=== PATIENT | male | born 1990 | race Caucasian/White ===

== ENCOUNTER → 2016-12-04 | Outpatient (CLI) | payer OTHER ==
[2016-12-04 09:29] LABS: BASO % 0.1 %; BASO ABS # 0.02 K/uL (0-0.2); COMPLETE YES; EOS % 0.1 %; HEMATOCRIT 50.5 % (42-52); IG% 0.6 %; LYMPH % 16.7 %; LYMPH ABS # 2.72 K/uL (1.2-3.4); MEAN CELL VOLUME 99.6 fL (80-100); MEAN CORPUSCULAR HEMOGLOBIN 35.9 pg (25-34); MEAN PLATELET VOLUME 9.6 fL (7.4-10.4); NEUT % 77.5 %; PLATELET COUNT 220 K/uL (130-400); RED BLOOD COUNT 5.07 M/uL (4.7-6.1); WHITE BLOOD COUNT 16.27 K/uL (4.8-10.8)
[2016-12-04 09:31] LABS: URINE APPEARANCE CLEAR (CLEAR); URINE BILIRUBIN NEG (NEG); URINE COLOR YELLOW; URINE EPITHELIAL CELL AUTO 0-5 /lpf (0-5); URINE NITRITE NEG (NEG); URINE PH 5.5 (4.5-7.5); URINE SPECIFIC GRAVITY 1.021 (1.000-1.030); UROBILINOGEN NEG (NEG)
[2016-12-04 09:32] LABS: MANUAL MICROSCOPIC REQUIRED? NO; REVIEW REQ? NO
[2016-12-04 09:46] LABS: URINE PROTIEN/CREAT RATIO 0.1 (0-0.2); URINE TOTAL PROTEIN 20.4 mg/dl (0-11.9)
[2016-12-04 10:01] LABS: BUN/CREATININE RATIO 11.8 (10-20); CREATININE 1.1 mg/dl (0.60-1.40); POTASSIUM 3.3 mmol/L (3.5-5.1)
[2016-12-04 10:04] LABS: ALB/GLOB RATIO 1.1 (0.9-2)
[2016-12-04 11:13] LABS: URINE TOTAL PROTEIN 10.6 mg/dl (0-11.9)
[2016-12-04 12:22] LABS: URINE TOTAL PROTEIN CALC 297.9 mg/24 hr (0-149.1)
[2016-12-04 12:23] LABS: CREATININE 1.1 mg/dl (0.6-1.4)
== END | disposition home or self-care (01) ==
LOC: C.LAB1850 08:41
PROVIDERS: ATTEND Internal Medicine Nephrology
DX: M31.0 Hypersensitivity angiitis (principal); D69.0 Allergic purpura; R31.9 Hematuria, unspecified; Z79.52 Long term (current) use of systemic steroids

== ENCOUNTER → 2017-01-10 | Outpatient (CLI) | payer OTHER ==
[2017-01-10 12:20] LABS: BASO % 0.2 %; BASO ABS # 0.02 K/uL (0-0.2); COMPLETE YES; EOS % 0.3 %; HEMATOCRIT 47.5 % (42-52); IG% 0.6 %; LYMPH % 16.7 %; LYMPH ABS # 1.99 K/uL (1.2-3.4); MEAN CELL VOLUME 98.3 fL (80-100); MEAN CORPUSCULAR HEMOGLOBIN 36.2 pg (25-34); MEAN CORPUSCULAR HGB CONC 36.8 g/dl (32-36); MEAN PLATELET VOLUME 9.8 fL (7.4-10.4); MONO % 8.2 %; PLATELET COUNT 181 K/uL (130-400); RED BLOOD COUNT 4.83 M/uL (4.7-6.1); WHITE BLOOD COUNT 11.92 K/uL (4.8-10.8)
[2017-01-10 12:58] LABS: ALT/SGPT 97 U/L (12-78); CREATININE 0.98 mg/dl (0.60-1.40)
[2017-01-10 13:01] LABS: ALKALINE PHOSPHATASE 70 U/L (45-117); AST/SGOT 21 U/L (15-37)
== END | disposition home or self-care (01) ==
LOC: C.LAB1850 11:13
PROVIDERS: ATTEND Internal Medicine Rheumatology
DX: M31.0 Hypersensitivity angiitis (principal); D69.0 Allergic purpura; Z79.52 Long term (current) use of systemic steroids; N02.8 Recurrent and persistent hematuria with other morphologic changes

== ENCOUNTER → 2017-01-29 | Outpatient (CLI) | payer OTHER ==
[~2017-01-29] VITALS: Ht 193 cm; Wt 135.0 kg
[2017-01-29 13:31] VITALS: BP 129/83; PULSE 118; Ht 193 cm; Wt 135.0 kg
== END | disposition home or self-care (01) ==
LOC: C.NEUR 13:22
PROVIDERS: ATTEND Internal Medicine Pulmonary Disease
DX: G47.33 Obstructive sleep apnea (adult) (pediatric) (principal)

== ENCOUNTER → 2017-02-07 | Outpatient (CLI) | payer OTHER ==
[2017-02-07 12:19] LABS: BASO % 0.2 %; BASO ABS # 0.02 K/uL (0-0.2); COMPLETE YES; EOS % 0.4 %; HEMATOCRIT 47.6 % (42-52); IG% 0.3 %; LYMPH % 17.2 %; LYMPH ABS # 1.82 K/uL (1.2-3.4); MEAN CORPUSCULAR HEMOGLOBIN 36.4 pg (25-34); MEAN CORPUSCULAR HGB CONC 36.8 g/dl (32-36); MEAN PLATELET VOLUME 9.8 fL (7.4-10.4); MONO % 8.2 %; NEUT % 73.7 %; PLATELET COUNT 208 K/uL (130-400); RED BLOOD COUNT 4.81 M/uL (4.7-6.1); WHITE BLOOD COUNT 10.57 K/uL (4.8-10.8)
[2017-02-07 12:42] LABS: ALT/SGPT 126 U/L (12-78); AST/SGOT 34 U/L (15-37)
== END | disposition home or self-care (01) ==
LOC: C.LAB1850 11:28
PROVIDERS: ATTEND Internal Medicine Rheumatology
DX: M31.0 Hypersensitivity angiitis (principal); D69.0 Allergic purpura; Z79.52 Long term (current) use of systemic steroids; N02.8 Recurrent and persistent hematuria with other morphologic changes

== ENCOUNTER → 2017-03-20 | Outpatient (CLI) | payer OTHER ==
[2017-03-20 11:54] LABS: BASO % 0.2 %; BASO ABS # 0.02 K/uL (0-0.2); COMPLETE YES; EOS % 0.7 %; HEMATOCRIT 48.7 % (42-52); IG% 0.2 %; LYMPH % 15.7 %; LYMPH ABS # 1.37 K/uL (1.2-3.4); MEAN CELL VOLUME 99.8 fL (80-100); MEAN CORPUSCULAR HGB CONC 35.1 g/dl (32-36); MEAN PLATELET VOLUME 10.1 fL (7.4-10.4); MONO % 7.6 %; NEUT % 75.6 %; PLATELET COUNT 201 K/uL (130-400); RED BLOOD COUNT 4.88 M/uL (4.7-6.1)
[2017-03-20 12:19] LABS: ALT/SGPT 123 U/L (12-78); AST/SGOT 49 U/L (15-37)
== END | disposition home or self-care (01) ==
LOC: C.LAB1850 10:55
PROVIDERS: ATTEND Internal Medicine Rheumatology
DX: L70.8 Other acne (principal); D69.0 Allergic purpura; Z79.899 Other long term (current) drug therapy

== ENCOUNTER → 2017-08-05 | Outpatient (CLI) | payer OTHER ==
[2017-08-05 14:48] LABS: BASO % 0.3 %; BASO ABS # 0.03 K/uL (0-0.2); EOS % 2.7 %; EOS ABS # 0.29 K/uL (0-0.5); HEMATOCRIT 47.9 % (42-52); HEMOGLOBIN 17.7 g/dL (14.0-18.0); IG# 0.04 K/uL (0.00-0.02); LYMPH % 18.4 %; MEAN CELL VOLUME 97.2 fL (80-100); MEAN CORPUSCULAR HEMOGLOBIN 35.9 pg (25-34); MEAN PLATELET VOLUME 9.9 fL (7.4-10.4); MONO % 8.1 %; MONO ABS # 0.88 K/uL (0.11-0.59); NEUT % 70.1 %; NEUT ABS # 7.63 K/uL (1.4-6.5); PLATELET COUNT 192 K/uL (130-400); RED CELL DISTRIBUTION WIDTH CV 12.5 % (11.5-14.5); RED CELL DISTRIBUTION WIDTH SD 44.1 fL (36.4-46.3); WHITE BLOOD COUNT 10.87 K/uL (4.8-10.8)
[2017-08-05 15:47] LABS: ALBUMIN 3.8 gm/dl (3.4-5.0); ALT/SGPT 75 U/L (12-78); CREATININE 0.97 mg/dl (0.60-1.40)
[2017-08-05 15:50] LABS: ALKALINE PHOSPHATASE 116 U/L (45-117); AST/SGOT 25 U/L (15-37); TOTAL PROTEIN 7.4 gm/dl (6.4-8.2)
== END | disposition home or self-care (01) ==
LOC: C.LAB1850 13:27
PROVIDERS: ATTEND Internal Medicine Rheumatology
DX: Z51.81 Encounter for therapeutic drug level monitoring (principal); M31.0 Hypersensitivity angiitis; D69.0 Allergic purpura; Z79.52 Long term (current) use of systemic steroids; Z79.899 Other long term (current) drug therapy

== ENCOUNTER → 2017-10-24 | Outpatient (CLI) | payer OTHER ==
[2017-10-24 12:08] LABS: BASO % 0.4 %; BASO ABS # 0.03 K/uL (0-0.2); EOS % 4.1 %; EOS ABS # 0.29 K/uL (0-0.5); HEMATOCRIT 45.5 % (42-52); HEMOGLOBIN 16.7 g/dL (14.0-18.0); IG# 0.01 K/uL (0.00-0.02); LYMPH % 37.3 %; LYMPH ABS # 2.66 K/uL (1.2-3.4); MEAN CORPUSCULAR HEMOGLOBIN 35.2 pg (25-34); MEAN CORPUSCULAR HGB CONC 36.7 g/dl (32-36); MEAN PLATELET VOLUME 9.9 fL (7.4-10.4); MONO % 7.6 %; MONO ABS # 0.54 K/uL (0.11-0.59); NEUT % 50.5 %; PLATELET COUNT 201 K/uL (130-400); RED CELL DISTRIBUTION WIDTH CV 12.8 % (11.5-14.5); RED CELL DISTRIBUTION WIDTH SD 44.4 fL (36.4-46.3); WHITE BLOOD COUNT 7.13 K/uL (4.8-10.8)
[2017-10-24 12:22] LABS: ALBUMIN 3.7 gm/dl (3.4-5.0); BLOOD UREA NITROGEN 10 mg/dl (7-18); CALCIUM 8.7 mg/dl (8.5-10.1); CARBON DIOXIDE 25 mmol/L (21-32); CREATININE 1.09 mg/dl (0.60-1.40); GLUCOSE 161 mg/dl (70-99); POTASSIUM 3.7 mmol/L (3.5-5.1); SODIUM 138 mmol/L (136-145)
[2017-10-24 12:26] LABS: ALKALINE PHOSPHATASE 130 U/L (45-117); ALT/SGPT 72 U/L (12-78); AST/SGOT 32 U/L (15-37); PHOSPHORUS 2.6 mg/dl (2.5-4.9)
== END | disposition home or self-care (01) ==
LOC: C.LAB1850 10:45
PROVIDERS: ATTEND Internal Medicine Rheumatology
DX: D69.0 Allergic purpura (principal); N18.1 Chronic kidney disease, stage 1; N02.8 Recurrent and persistent hematuria with other morphologic changes; R80.9 Proteinuria, unspecified; Z79.899 Other long term (current) drug therapy; Z79.52 Long term (current) use of systemic steroids; M31.0 Hypersensitivity angiitis

== ENCOUNTER → 2018-01-28 | Outpatient (CLI) | payer OTHER ==
[~2018-01-28] VITALS: Ht 193 cm; Wt 133.3 kg
[2018-01-28 13:45] VITALS: BP 124/81; PULSE 83; Ht 193 cm; Wt 133.3 kg
== END | disposition home or self-care (01) ==
LOC: C.NEUR 12:45
PROVIDERS: ATTEND Internal Medicine Pulmonary Disease
DX: G47.33 Obstructive sleep apnea (adult) (pediatric) (principal)